=== PATIENT | male | born 1960 | race Caucasian/White ===

== ENCOUNTER 2019-08-14 13:45 | Inpatient (IN) | payer SELFPAY ==
[2019-08-14] MEDS ORDERED: ACETAMINOPHEN 325 MG TABLET PO PRN (14:00)
== END 2019-08-14 14:19 | disposition home or self-care (01) | DRG 951 ==
LOC: TELE-TD 13:45
PROVIDERS: ADMIT Internal Medicine; ATTEND Internal Medicine
DX: Z00.00 Encounter for general adult medical examination without abnormal findings (principal)
CPT/HCPCS: G0378